=== PATIENT | female | born 2000 | race Caucasian/White ===

== ENCOUNTER → 2020-10-07 16:07 | Outpatient (CLI) | payer OTHER, SELFPAY ==
[2020-10-11 03:40] LABS: Chlamydia trachomatis NAA Negative (Negative); Neisseria gonorrhoeae NAA Negative (Negative)
== END ==
PROVIDERS: PCP Physician Assistant Medical; Visit Provider Physician Assistant
DX: R10.84 Generalized abdominal pain (principal); R11.0 Nausea; R82.90 Unspecified abnormal findings in urine
CPT/HCPCS: 87086; 87491; 87591

== ENCOUNTER → 2020-10-12 08:18 | Outpatient (CLI) | payer OTHER, SELFPAY ==
[2020-10-12 18:40] LABS: Add Manual Diff / Slide Review NO; Basophils Absolute Auto 0 /uL (0-100); Basophils Percent Auto 0.6 % (0-2); Eosinophils Absolute Auto 100 /uL (0-450); Eosinophils Percent Auto 0.9 % (2-4); Hematocrit 44.9 % (36-46); Hemoglobin 14.9 g/dL (12.0-16.0); Lymphocytes Absolute Auto 1900 /uL (1100-4500); Lymphocytes Percent Auto 27.2 % (25-40); Mean Corpuscular HGB Conc 33.2 % (30-36); Mean Corpuscular Hemoglobin 30.3 PG (26-34); Mean Corpuscular Volume 91.4 fL (80-100); Monocytes Absolute Auto 500 /uL (0-900); Monocytes Percent Auto 6.9 % (3-14); Neutrophils Absolute Auto 4400 /uL (1500-7000); Neutrophils Percent Auto 64.4 % (50-75); Platelet Count 282 X10^3/uL (150-400); Red Blood Cell Count 4.91 X10^6/uL (4.0-5.2); Red Cell Distribution Width 12.9 % (11.6-14.8); White Blood Cell Count 6.9 X10^3/uL (4.5-11.0)
[2020-10-12 19:14] LABS: Alanine Aminotransferase 12 IU/L (<35); Albumin 4.3 g/dL (3.5-5.0); Albumin Globulin Ratio 1.4 (1.0-2.8); Alkaline Phosphatase 75 U/L (38-126); Aspartate Aminotransferase 21 IU/L (14-36); BUN Creatinine Ratio 14.9 (6-22); Bilirubin Total 0.6 mg/dL (0.2-1.3); Blood Urea Nitrogen 11 mg/dL (7-17); Calcium 9.5 mg/dL (8.4-10.2); Carbon Dioxide 26 mmol/L (22-32); Chloride 105 mmol/L (98-107); Estimated Glomerular Filt Rate > 60.0 mL/min (>60); Globulin 3.1 g/dL (1.7-4.1); Glucose 94 mg/dL (70-100); HEMOLYSIS < 15 (0-50); Sodium 139 mmol/L (137-145); Total Protein 7.4 g/dL (6.3-8.2)
[2020-10-12 19:44] LABS: Thyroid Stimulating Hormone 1.01 uIU/mL (0.47-4.68)
== END ==
PROVIDERS: PCP Physician Assistant Medical; Visit Provider Physician Assistant
DX: R10.84 Generalized abdominal pain (principal); R11.0 Nausea; R19.5 Other fecal abnormalities
CPT/HCPCS: 80053; 84443; 85025

== ENCOUNTER 2020-10-13 13:33 | Emergency (ER) | payer OTHER, SELFPAY ==
[2020-10-13 14:08] VITALS: BP 117/73; PULSE 76; RESP 18; TEMP 36.8; O2SAT 99; BMI 29.5
[2020-10-13 14:37] LABS: Add Manual Diff / Slide Review NO; Basophils Absolute Auto 100 /uL (0-100); Basophils Percent Auto 0.7 % (0-2); Eosinophils Absolute Auto 100 /uL (0-450); Eosinophils Percent Auto 0.7 % (2-4); Hemoglobin 15.4 g/dL (12.0-16.0); Lymphocytes Absolute Auto 2300 /uL (1100-4500); Lymphocytes Percent Auto 22.7 % (25-40); Mean Corpuscular HGB Conc 34.3 % (30-36); Mean Corpuscular Hemoglobin 30.7 PG (26-34); Mean Corpuscular Volume 89.3 fL (80-100); Monocytes Absolute Auto 700 /uL (0-900); Monocytes Percent Auto 6.8 % (3-14); Neutrophils Absolute Auto 6900 /uL (1500-7000); Neutrophils Percent Auto 69.1 % (50-75); Platelet Count 310 X10^3/uL (150-400); Red Blood Cell Count 5.03 X10^6/uL (4.0-5.2); Red Cell Distribution Width 12.9 % (11.6-14.8)
[2020-10-13 14:44] LABS: INR 1.1 (0.9-1.3); Prothrombin Time 12.2 SECONDS (10.1-12.7)
[2020-10-13 14:46] LABS: PTT Partial Thromboplastin Tim 40 SECONDS (26.4-36.2)
[2020-10-13 14:49] LABS: Alanine Aminotransferase 13 IU/L (<35); Albumin 4.9 g/dL (3.5-5.0); Albumin Globulin Ratio 1.4 (1.0-2.8); Alkaline Phosphatase 69 U/L (38-126); Aspartate Aminotransferase 23 IU/L (14-36); BUN Creatinine Ratio 17.7 (6-22); Bilirubin Total 0.6 mg/dL (0.2-1.3); Blood Urea Nitrogen 14 mg/dL (7-17); Carbon Dioxide 27 mmol/L (22-32); Chloride 104 mmol/L (98-107); Estimated Glomerular Filt Rate > 60.0 mL/min (>60); Globulin 3.5 g/dL (1.7-4.1); Glucose 93 mg/dL (70-100); HEMOLYSIS < 15 (0-50); Lipase 53 U/L (23-300); Potassium 3.9 mmol/L (3.4-5.1); Sodium 140 mmol/L (137-145); Total Protein 8.4 g/dL (6.3-8.2)
[2020-10-13 16:05] VITALS: BP 112/59; BP 118/77; PULSE 72; PULSE 97
--- NOTE | 2020-10-13 16:20 | ED_ITS ---
HPI - General Adult General Chief complaint: Abdominal Pain Stated complaint: abdominal pain past month Time Seen by Provider: 10/13/20 16:03 Source: patient Mode of arrival: Ambulatory Limitations: no limitations History of Present Illness HPI narrative: Patient is a 20-year-old female who is here for evaluation of bilateral upper abdominal discomfort. She states it has been going on for the past month. He does seem to come and go. She has also had episodes of diarrhea. There is no blood in her stool. Does not think that the abdominal pain is associated with eating or with urinating or having a bowel movement. She has tried Imodium but this caused her to then become constipated for couple days. No fevers. No history of . No prior abdominal surgeries. Related Data Allergies Allergy/AdvReac Type Severity Reaction Status Date / Time No Known Drug Allergies Allergy Verified 10/13/20 14:08 Review of Systems Constitutional Constitutional: Denies fever(s) and Denies headache(s) ENT Ears, Nose, Mouth, and Throat: Denies headache(s) Cardiovascular Cardiovascular: Denies chest pain and Denies dyspnea Respiratory Respiratory: Denies dyspnea Gastrointestinal Gastrointestinal: Reports abdominal pain, Reports diarrhea, Denies nausea and Denies vomiting Genitourinary Genitourinary: Denies dysuria Genitourinary: Denies abnormal vaginal bleeding and Denies dysuria Musculoskeletal Musculoskeletal: Denies myalgias Integumentary/Breasts Skin/Breast: Denies rash Neurologic Neurologic: Denies behavioral changes and Denies headache(s) Psychiatric Psychiatric: Denies behavioral changes Hematologic/Lymphatic On Anticoagulants: No Allergic/Immunologic Allergic/Immunologic: Denies urticaria Patient History Medical History Foul smelling urine Loose stools Social History Smoking Status: Current every day smoker Smoking Status: Current every day smoker tobacco type: vaping alcohol intake frequency: a few times a month Substance Use Type: marijuana Exam Initial Vital Signs Initial Vital Signs: Vital Signs Temperature 98.3 F 10/13/20 14:08 Pulse Rate 76 10/13/20 14:08 Respiratory Rate 18 10/13/20 14:08 Blood Pressure 117/73 10/13/20 14:08 Pulse Oximetry 99 10/13/20 14:08 Const General: cooperative and comfortable Limitations: mental status not altered HENMT Head: normal to inspection and normocephalic Resp Effort & Inspection: normal respiratory effort Auscultation: clear to auscultation bilaterally Cardio Rate: regular rate Rhythm: regular rhythm GI Inspection: non-distended Palpation: soft, No firm and tender (Mild tenderness upper abdomen) Back/Spine/Pelvis Back: No CVA tenderness Skin Lesions: no lesions Rashes: no rashes Neuro General: patient alert, patient awake and patient oriented x3 Cognition: normal cognition Speech: speech normal Extrem General: normal to inspection Psych Appearance: grossly normal and well kempt Course Orders Ordered: ED Orders 10/13/20 14:28 Complete Blood Count AUTO DIFF Stat Comprehensive Metabolic Panel Stat Lipase Stat Partial Thromboplastin Time Stat Prothrombin Time INR Stat Vital Signs Vital signs: Vital Signs - 8 hr 10/13/20 14:08 10/13/20 16:05 10/13/20 16:32 Temperature 98.3 F Pulse Rate 76 62 Pulse Rate [Orthostatic Lying] 72 Pulse Rate [Orthostatic Standing] 97 H Respiratory Rate 18 Blood Pressure 117/73 106/60 Blood Pressure [Orthostatic Lying] 112/59 L Blood Pressure [Orthostatic Standing] 118/77 Pulse Oximetry 99 99 Medical Decision Making Lab Data Lab results reviewed: Yes I reviewed the patient's lab results. Result diagrams: 10/13/20 14:28 10/13/20 14:28 Labs: Lab Results 10/13/20 10/13/20 10/13/20 Range/Units 14:28 14:28 14:28 WBC 10.0 (4.5-11.0) X10^3/uL RBC 5.03 (4.0-5.2) X10^6/uL Hgb 15.4 (12.0-16.0) g/dL Hct 45.0 (36-46) % MCV 89.3 (80-100) fL MCH 30.7 (26-34) PG MCHC 34.3 (30-36) % RDW 12.9 (11.6-14.8) % Plt Count 310 (150-400) X10^3/uL Neut % (Auto) 69.1 (50-75) % Lymph % (Auto) 22.7 L (25-40) % [place] % (Auto) 6.8 (3-14) % Eos % (Auto) 0.7 L (2-4) % Baso % (Auto) 0.7 (0-2) % Neut # (Auto) 6900 (6690-3550) /uL Lymph # (Auto) 2300 (2688-9257) /uL [place] # (Auto) 700 (0-900) /uL Eos # (Auto) 100 (0-450) /uL Baso # (Auto) 100 (0-100) /uL PT 12.2 (10.1-12.7) SECONDS INR 1.1 (0.9-1.3) APTT 40 H (26.4-36.2) SECONDS Sodium 140 (137-145) mmol/L Potassium 3.9 (3.4-5.1) mmol/L Chloride 104 (98-107) mmol/L Carbon Dioxide 27 (22-32) mmol/L BUN 14 (7-17) mg/dL Creatinine 0.79 (0.52-1.04) mg/dL Estimated GFR > 60.0 (>60) mL/min BUN/Creatinine Ratio 17.7 (6-22) Glucose 93 (70-100) mg/dL Calcium 10.0 (8.4-10.2) mg/dL Total Bilirubin 0.6 (0.2-1.3) mg/dL AST 23 (14-36) IU/L ALT 13 (<35) IU/L Alkaline Phosphatase 69 (38-126) U/L Total Protein 8.4 H (6.3-8.2) g/dL Albumin 4.9 (3.5-5.0) g/dL Globulin 3.5 (1.7-4.1) g/dL Albumin/Globulin Ratio 1.4 (1.0-2.8) Lipase 53 (23-300) U/L [facility] Narrative Medical decision making narrative: Patient has unremarkable labs. Also has a very benign exam. She is afebrile. I have low suspicion for appendicitis and also other intra-abdominal surgical issues I feel that we should hold on any radiologic studies for now. Is also no indication for antibiotics. Low suspicion for gallbladder pathology. Low suspicion for pancreatitis. I did discuss all this with the patient. Plan is to start the patient on famotidine for the next several days/weeks to see if this does not improve her symptoms. She is going to contact her primary doctor to discuss potential referral to see Gastroenterology. She was given return precautions. She expressed understanding and agreement. Discharge Plan Departure Patient Disposition: Home Clinical Impression: Abdominal pain Instructions: DI for Abdominal Pain-Adult Activity Restrictions/Additional Instructions: Your labs and workup today is very reassuring. I recommend that you start on a medicine called famotidine/Pepcid. You can purchase this [id number]. Start taking it like we discussed. Also recommend you talk with your primary doctor about the indications for referral to see Gastroenterology. Return to the emergency department for any new or worsening symptoms. Referrals: Radha Kimble PA-C [Primary Care Provider] -
[2020-10-13 16:32] VITALS: BP 106/60; PULSE 62; O2SAT 99
== END 2020-10-13 16:33 | disposition home or self-care (01) ==
PROVIDERS: Emergency Medicine; Emergency Provider Emergency Medicine; PCP Physician Assistant Medical
DX: R10.9 Unspecified abdominal pain (principal); R19.7 Diarrhea, unspecified
CPT/HCPCS: 36415; 80053; 83690; 85025; 85610; 85730; 99283

== ENCOUNTER 2020-10-19 22:02 | Emergency (ER) | payer OTHER, SELFPAY ==
[2020-10-19 22:09] VITALS: BP 114/75; PULSE 81; RESP 18; TEMP 36.3; O2SAT 100
--- NOTE | 2020-10-19 22:36 | DI.CT.S_ITS ---
PROCEDURE: CT ABDOMEN PELVIS W CON INDICATIONS: generalized abdominal pain TECHNIQUE: After the administration of intravenous contrast, 5 mm thick sections acquired from the diaphragm to the symphysis. 5 mm coronal and sagittal reformats were acquired. For radiation dose reduction, the following was used: automated exposure control, adjustment of mA and/or kV according to patient size. COMPARISON: None. FINDINGS: Image quality: Excellent. ABDOMEN: Lung bases: Lung bases are clear. Heart size is normal. Solid organs: Liver is normal in size and enhancement. There is a small Phrygian cap versus focal adenomyomatosis at the gallbladder fundus. The gallbladder otherwise appears normal without stones or signs of acute cholecystitis. Biliary system is non dilated. Pancreas enhances normally. Spleen is normal in size and enhancement. No adrenal nodules. Kidneys demonstrate normal size and enhancement, without hydronephrosis. Peritoneum and bowel: A few scattered diverticula are seen in the colon without signs of acute diverticulitis. Mild bowel wall thickening versus underdistention is seen in portions of the descending and sigmoid colon. The appendix appears normal. No signs of bowel obstruction. No free fluid or air. Nodes and vessels: No retroperitoneal or mesenteric adenopathy by size criteria. Aorta and inferior vena cava are normal in size. Miscellaneous: No ventral hernias. PELVIS: Genitourinary: Bladder wall thickness is normal. The uterus is normal in size. No suspicious adnexal mass is seen. Miscellaneous: No inguinal hernias or adenopathy. Bones: No suspicious bony lesions. No vertebral body compression fractures. IMPRESSION: 1. Mild bowel wall thickening versus underdistention in the descending and sigmoid colon may indicate a possible mild colitis in the appropriate clinical setting. 2. Mild colonic diverticulosis without signs of acute diverticulitis. There is no significant discrepancy when compared to the overnight Teleradiology report. Dictated by: Teodoro Hyatt M.D. on 10/20/2020 at 9:01 Approved by: Teodoro Hyatt M.D. on 10/20/2020 at 9:10
--- NOTE | 2020-10-19 22:37 | ED.ABDPAIN ---
HPI - Abdominal Pain General Chief Complaint: Abdominal Pain Stated Complaint: abdominal pain Time Seen by Provider: 10/19/20 22:27 Source: patient and family Mode of arrival: Ambulatory History of Present Illness HPI narrative: Patient complains ongoing upper abdominal pain bilaterally for the past 1 month. Seen here 6 days ago for the same. No imaging but blood work done. Now localizing to the right upper quadrant. Has had nausea vomiting and watery diarrhea. Denies . No urinary complaints. No prior abdominal surgical history. MD complaint: abdominal pain Related Data Previous Rx's Medication Instructions Recorded dicyclomine 10 mg PO TID #20 cap 10/20/20 ondansetron 4 mg PO Q8H PRN #10 tab 10/20/20 pantoprazole [Protonix] 40 mg PO DAILY #14 tab 10/20/20 sucralfate 1 g PO BID #20 tab 10/20/20 Allergies Allergy/AdvReac Type Severity Reaction Status Date / Time No Known Drug Allergies Allergy Verified 10/13/20 14:08 Review of Systems Review of Systems Narrative: GENERAL: Denies chills, fatigue, malaise, fever, sweats. HEENT: Denies sinus pain, ear pain, sore throat RESPIRATORY: Denies dyspnea, cough CARDIOVASCULAR: Denies chest pain, palpitations GASTROINTESTINAL: Complains of diarrhea, nausea, vomiting, abdominal pain : Denies dysuria, frequency, hematuria MUSCULOSKELETAL: denies muscle or bony pain SKIN: Denies rash, skin lesions NEUROLOGIC: Denies weakness, numbness ROS Unobtainable: All systems reviewed & are unremarkable except as noted in HPI and below Patient History Medical History Foul smelling urine Loose stools Social History Smoking Status: Current every day smoker Smoking Status: Current every day smoker tobacco type: vaping alcohol intake frequency: a few times a month Substance Use Type: marijuana Exam Narrative Exam Narrative: GENERAL: in no distress, not toxic not dyspneic HEAD: Normocephalic. EYES: Pupils equal round No scleral icterus. No injection no discharge ENT: Mucous membranes moist. NECK: Trachea midline. CARDIOVASCULAR: Regular rate and rhythm without murmurs RESPIRATORY: Clear to auscultation. Breath sounds equal bilaterally. No wheezes, rales, or rhonchi. GASTROINTESTINAL: Abdomen soft, mild right upper quadrant tenderness. Pain with Terry sign. No McBurney point tenderness, bowel sounds present. No peritoneal signs EXTREMITIES: No gross deformities. BACK: No flank tenderness. NEURO: AOx4. SKIN: Warm and dry PSYCH: Not anxious, is cooperative Initial Vital Signs Initial Vital Signs: Vital Signs Temperature 97.4 F L 10/19/20 22:09 Pulse Rate 81 10/19/20 22:09 Respiratory Rate 18 10/19/20 22:09 Blood Pressure 114/75 10/19/20 22:09 Pulse Oximetry 100 10/19/20 22:09 Course Course Course Narrative: No new issues during course of stay Orders Ordered: ED Orders 10/19/20 22:30 Complete Blood Count AUTO DIFF Stat Comprehensive Metabolic Panel Stat Lipase Stat Partial Thromboplastin Time Stat Prothrombin Time INR Stat 10/19/20 22:36 CT abdomen pelvis w con Stat Discontinued Medications Sodium Chloride (Normal Saline 0.9%) 1,000 mls @ 1,000 mls/hr IV BOLUS ONE Stop: 10/19/20 23:34 Last Infusion: 10/20/20 00:33 Dose: 0 mls/hr Documented by: Admin: 10/19/20 22:55 Dose: 1,000 mls/hr Documented by: NEDA Ketorolac Tromethamine (Ketorolac 30 Mg/Ml Vial) 15 mg IV NOW ONE Stop: 10/19/20 22:36 Last Admin: 10/19/20 22:55 Dose: 15 mg Documented by: NEDA Ondansetron HCl (Ondansetron 4 Mg/2 Ml Inj) 4 mg IV NOW ONE Stop: 10/19/20 22:36 Last Admin: 10/19/20 22:55 Dose: 4 mg Documented by: NEDA Reevaluation(s) Reevaluation #1: Pain and nausea controlled while here. Reviewed results with patient and mother. Agree with treatment plan and follow-up with family doctor or general surgeon for HIDA scan/ultrasound of the gallbladder as well as endoscopy/colonoscopy No family history of IBD. Time: 00:17 Vital Signs Vital signs: Vital Signs - 8 hr 10/19/20 22:09 Temperature 97.4 F L Pulse Rate 81 Respiratory Rate 18 Blood Pressure 114/75 Pulse Oximetry 100 MDM - Abdominal Pain Differential Diagnosis Differential diagnosis: Likely abdominal pain, acute appendicitis, constipation, gastroenteritis, pancreatitis and other (Biliary colic/cholecystitis/gallstone) Medical Records Attestation: I reviewed the patient's medical records. Lab Data Attestation: I reviewed the patient's lab results. Result diagrams: 10/19/20 22:30 10/19/20 22:30 Labs: Lab Results 10/19/20 10/19/20 10/19/20 Range/Units 22:30 22:30 22:30 WBC 11.0 (4.5-11.0) X10^3/uL RBC 4.60 (4.0-5.2) X10^6/uL Hgb 14.0 (12.0-16.0) g/dL Hct 40.8 (36-46) % MCV 88.8 (80-100) fL MCH 30.5 (26-34) PG MCHC 34.4 (30-36) % RDW 12.5 (11.6-14.8) % Plt Count 265 (150-400) X10^3/uL Neut % (Auto) 66.7 (50-75) % Lymph % (Auto) 23.7 L (25-40) % [place] % (Auto) 9.0 (3-14) % Eos % (Auto) 0.2 L (2-4) % Baso % (Auto) 0.4 (0-2) % Neut # (Auto) 7400 H (9013-3179) /uL Lymph # (Auto) 2600 (6628-9721) /uL [place] # (Auto) 1000 H (0-900) /uL Eos # (Auto) 0 (0-450) /uL Baso # (Auto) 0 (0-100) /uL PT 13.3 H (10.1-12.7) SECONDS INR 1.2 (0.9-1.3) APTT 37 H (26.4-36.2) SECONDS Sodium 139 (137-145) mmol/L Potassium 3.8 (3.4-5.1) mmol/L Chloride 106 (98-107) mmol/L Carbon Dioxide 26 (22-32) mmol/L BUN 14 (7-17) mg/dL Creatinine 0.77 (0.52-1.04) mg/dL Estimated GFR > 60.0 (>60) mL/min BUN/Creatinine Ratio 18.2 (6-22) Glucose 99 (70-100) mg/dL Calcium 9.3 (8.4-10.2) mg/dL Total Bilirubin 0.6 (0.2-1.3) mg/dL AST 22 (14-36) IU/L ALT 11 (<35) IU/L Alkaline Phosphatase 64 (38-126) U/L Total Protein 7.3 (6.3-8.2) g/dL Albumin 4.3 (3.5-5.0) g/dL Globulin 3.0 (1.7-4.1) g/dL Albumin/Globulin Ratio 1.4 (1.0-2.8) Lipase 50 (23-300) U/L Imaging Data CT scan - abdomen/pelvis: Radiologist's Impression: CT scan abdomen pelvis read by overnight radiologist impression question mild proctitis/discontinue his colitis. MDM Narrative Medical decision making narrative: Appropriate for discharge home. Imaging laboratory studies and workup reassuring. Patient not toxic. Ongoing for 1 month. Laboratory studies and imaging and exam reassuring. Will need further outpatient management. Discharge Plan Departure Patient Disposition: Home Clinical Impression: Abdominal pain Qualifiers: Abdominal location: right upper quadrant Qualified Code(s): R10.11 - Right upper quadrant pain Instructions: DI for Abdominal Pain-Adult Activity Restrictions/Additional Instructions: Call provided general surgery office/provider tomorrow for office recheck as well as scheduling for possible endoscopy of the stomach and colonoscopy. Also for possible ultrasound the gallbladder and HIDA scan of the gallbladder. No fried fatty greasy foods or spicy foods. Return if worse if any questions or concerns Prescriptions: New dicyclomine 10 mg capsule 10 mg PO TID Qty: 20 RF: 0 sucralfate 1 gram tablet 1 g PO BID Qty: 20 RF: 0 ondansetron 4 mg tablet,disintegrating 4 mg PO Q8H PRN (Reason: nausea and vomiting) Qty: 10 RF: 0 pantoprazole [Protonix] 40 mg tablet,delayed release (DR/EC) 40 mg PO DAILY Qty: 14 RF: 0 Referrals: Radha Kimble PA-C [Primary Care Provider] - Lyric Mtz MD [Physician] -
[2020-10-19] MEDS: ONDANSETRON 4 MG/2 ML INJ IV (22:55)
[2020-10-19] MEDS: KETOROLAC 30 MG/ML VIAL 15 MG IV (22:55)
[2020-10-19] MEDS: SODIUM CHLORIDE 0.9% 1,000 ML 1000 ML IV (22:55)
[2020-10-19 22:58] LABS: Add Manual Diff / Slide Review NO; Basophils Absolute Auto 0 /uL (0-100); Basophils Percent Auto 0.4 % (0-2); Eosinophils Absolute Auto 0 /uL (0-450); Eosinophils Percent Auto 0.2 % (2-4); Hematocrit 40.8 % (36-46); Lymphocytes Absolute Auto 2600 /uL (1100-4500); Lymphocytes Percent Auto 23.7 % (25-40); Mean Corpuscular HGB Conc 34.4 % (30-36); Mean Corpuscular Hemoglobin 30.5 PG (26-34); Mean Corpuscular Volume 88.8 fL (80-100); Monocytes Absolute Auto 1000 /uL (0-900); Neutrophils Absolute Auto 7400 /uL (1500-7000); Neutrophils Percent Auto 66.7 % (50-75); Platelet Count 265 X10^3/uL (150-400); Red Cell Distribution Width 12.5 % (11.6-14.8)
[2020-10-19 23:03] LABS: Alanine Aminotransferase 11 IU/L (<35); Albumin 4.3 g/dL (3.5-5.0); Albumin Globulin Ratio 1.4 (1.0-2.8); Alkaline Phosphatase 64 U/L (38-126); Aspartate Aminotransferase 22 IU/L (14-36); BUN Creatinine Ratio 18.2 (6-22); Bilirubin Total 0.6 mg/dL (0.2-1.3); Blood Urea Nitrogen 14 mg/dL (7-17); Calcium 9.3 mg/dL (8.4-10.2); Carbon Dioxide 26 mmol/L (22-32); Chloride 106 mmol/L (98-107); Estimated Glomerular Filt Rate > 60.0 mL/min (>60); Glucose 99 mg/dL (70-100); HEMOLYSIS < 15 (0-50); Lipase 50 U/L (23-300); Potassium 3.8 mmol/L (3.4-5.1); Sodium 139 mmol/L (137-145); Total Protein 7.3 g/dL (6.3-8.2)
[2020-10-19 23:56] LABS: INR 1.2 (0.9-1.3); Prothrombin Time 13.3 SECONDS (10.1-12.7)
[2020-10-19 23:59] LABS: PTT Partial Thromboplastin Tim 37 SECONDS (26.4-36.2)
== END 2020-10-20 00:34 | disposition home or self-care (01) ==
PROVIDERS: Emergency Provider Emergency Medicine; PCP Physician Assistant Medical
DX: R10.11 Right upper quadrant pain (principal); R11.2 Nausea with vomiting, unspecified
CPT/HCPCS: 74177; 80053; 83690; 85025; 85610; 85730; 96361; 96374; 96375; 99284; J1885; J2405; Q9967

== ENCOUNTER → 2020-11-12 12:21 | Outpatient (CLI) | payer OTHER, SELFPAY ==
--- NOTE | 2020-11-12 12:22 | DI.US.S_ITS ---
PROCEDURE: US ABDOMEN LIMITED INDICATIONS: RIGHT UPPER QUADRANT PAIN TECHNIQUE: Real-time focused scanning was performed of the abdomen, with image documentation. COMPARISON: [facility], CT, CT ABDOMEN PELVIS W CON, 10/19/2020, 22:53. FINDINGS: The liver demonstrates normal size. The liver demonstrates generalized mildly increased echogenicity. This decreases ultrasound sensitivity for detection of hepatic masses. The main portal vein demonstrates normal size and demonstrates normal appearing, hepatopetal flow. No findings of gallstones or sludge are seen. The gallbladder wall is not thickened, measuring 3 mm or less. No specific pericholecystic fluid is seen. The sonographic Terry sign is negative. There is no biliary dilatation, the common bile duct measures 2 mm. No significant pancreatic abnormality is seen on these images. IMPRESSION: The gallbladder demonstrates a normal sonographic appearance. No biliary dilatation is seen. The liver demonstrates mildly increased echogenicity. This finding is nonspecific, yet it is most commonly attributed to fatty infiltration. Dictated by: Hossein Tellez M.D. on 11/12/2020 at 11:58 Approved by: Hossein Tellez M.D. on 11/12/2020 at 11:58
== END ==
PROVIDERS: PCP Physician Assistant Medical; Referring Provider Physician Assistant; Visit Provider Physician Assistant
DX: R10.11 Right upper quadrant pain (principal)
CPT/HCPCS: 76705

== ENCOUNTER → 2021-01-26 10:24 | Outpatient (CLI) | payer OTHER, SELFPAY ==
[2021-01-26 21:22] LABS: COVID19 - ORCAS (NP or Nasal) Negative (Negative)
== END ==
PROVIDERS: PCP Physician Assistant; Visit Provider Physician Assistant Medical
DX: Z20.822 Contact with and (suspected) exposure to COVID-19 (principal)
CPT/HCPCS: U0003

== ENCOUNTER 2021-01-27 13:17 | Day surgery (SDC) | payer OTHER, SELFPAY ==
[2021-01-27 13:30] VITALS: BP 109/70; PULSE 82; RESP 16; TEMP 36.5; O2SAT 99; BMI 27.9
[2021-01-27] MEDS: LACTATED RINGERS 1,000 ML 200 ML IV (14:12)
--- NOTE | 2021-01-27 14:22 | PM.PREOP ---
Pre-operative Note Interval Note History & Physical reviewed/Exam performed by Physician: Yes Changes to H&P: No
[2021-01-27] MEDS: LIDOCAINE 4% SOLN 50 ML 20 ML TOP (14:27)
[2021-01-27] MEDS: fentaNYL 250 MCG/5 ML INJ IV (14:28)
[2021-01-27] MEDS: MIDAZOLAM 5 MG/5 ML VIAL IV (14:28)
--- NOTE | 2021-01-27 14:41 | P.OP.ENDO_ITS ---
Operative Date/Time/Diagnoses Date of procedure: 01/27/21 Time of procedure: 14:41 Pre-op diagnosis: abdominal pain Post-op diagnosis: same Procedure & Clinicians Study performed: esophagoduodenoscopy Same procedure as scheduled: Yes Indications: abdominal pain Surgeon: Max Pineda Procedure Notes Procedure in detail: Patient placed in left lateral decubitus position. Time out was performed. Procedural sedation was administered with Versed and Fentanyl. A bite block was placed. the scope was inserted into the mouth and advanced through the esophagus and into the stomach. The pylorus was intubated and the duodenum was normal to the 2nd portion. The scope was retroflexed within the stomach and there was a small hiatal hernia. No ulcers, or gastritis. The scope was withdrawn into the esophagus the Z line was seen at 40 cm from the in cisions. There was no Avina's esophagitis or masses or strictures. Stomach was desufflated and scope removed. Patient tolerated procedure well. Specimen(s): none sent Complications: none Impression: Normal esophagoduodenoscopy small hiatal Post-procedure Recommendations: Other recommendation (Follow-up with HIDA scan) Disposition: same day surgery
[2021-01-27 14:42] VITALS: BP 117/53; PULSE 80; RESP 12; TEMP 36.3; O2SAT 95
[2021-01-27 14:48] VITALS: BP 109/61; PULSE 70; RESP 14; O2SAT 96
[2021-01-27 14:53] VITALS: BP 105/68; PULSE 75; RESP 0; O2SAT 97
[2021-01-27 14:58] VITALS: BP 110/42; PULSE 72; RESP 10; O2SAT 97
[2021-01-27 15:03] VITALS: BP 98/60; PULSE 73; RESP 12; TEMP 36.8; O2SAT 99
== END 2021-01-27 14:13 | disposition home or self-care (01) ==
PROVIDERS: PCP Physician Assistant; Referring Provider Surgery; Visit Provider Surgery
PROC: 0DJ08ZZ Inspection of Upper Intestinal Tract, Via Natural or Artificial Opening Endoscopic (ICD-10-PCS; CPT 43235; principal; 2021-01-27 14:30)
DX: R10.9 Unspecified abdominal pain (principal); K44.9 Diaphragmatic hernia without obstruction or gangrene; F17.210 Nicotine dependence, cigarettes, uncomplicated; K21.9 Gastro-esophageal reflux disease without esophagitis
CPT/HCPCS: 43235; J2250; J3010

== ENCOUNTER → 2021-02-11 09:23 | Outpatient (CLI) | payer OTHER, SELFPAY ==
--- NOTE | 2021-02-11 09:25 | DI.NM.S_ITS ---
PROCEDURE: NM HIDA WITH CCK PHARMACEUTICAL: 5.3 mCi Tc-99m mebrofenin IV; 8 oz Ensure Plus by mouth. INDICATIONS: Abdominal pain negative US and CT TECHNIQUE: Following intravenous administration of Tc-99m mebrofenin, sequential anterior abdominal images were obtained. To evaluate the contractile response of the gallbladder in response to fatty meal, 8 0z Ensure Plus was given by mouth (as substitute for CCK) approximately 60 minutes after the administration of the radiopharmaceutical. Sequential imaging was continued for additional 30-60 minutes. Gallbladder ejection fraction was calculated. COMPARISON: None. FINDINGS: Biliary scan: There is normal tracer uptake and excretion by the liver. There is normal visualization of the intrahepatic ducts, common bile duct, and gallbladder. There is normal tracer transit into the duodenum. CCK stimulation: There is normal contractile response of the gallbladder to fatty meal. The calculated gallbladder ejection fraction is 81%; normal values are above 33%. IMPRESSION: 1. Normal filling of gallbladder. No evidence for acute cholecystitis. 2. Normal contractile response of gallbladder to fatty meal stimulation. Dictated by: Vivi Benítez M.D. on 02/11/2021 at 13:47 Approved by: Vivi Benítez M.D. on 02/11/2021 at 13:50
== END ==
PROVIDERS: PCP Physician Assistant; Referring Provider Surgery; Visit Provider Surgery
DX: R10.11 Right upper quadrant pain (principal)
CPT/HCPCS: 78226; A9537

== ENCOUNTER → 2021-05-06 08:57 | Outpatient (CLI) | payer OTHER, SELFPAY ==
[2021-05-06 21:29] LABS: COVID19 - ORCAS (NP or Nasal) Negative (Negative)
== END ==
PROVIDERS: PCP Physician Assistant; Visit Provider Physician Assistant
DX: Z20.822 Contact with and (suspected) exposure to COVID-19 (principal)
CPT/HCPCS: U0003

== ENCOUNTER → 2022-03-23 08:46 | Outpatient (CLI) | payer OTHER, SELFPAY ==
[2022-03-23 20:27] LABS: COVID-19 CEPHEID 4-PLEX PCR Negative (Negative); Influenza A - CEPHEID Flu A NEGATIVE (NEGATIVE); Influenza B - CEPHEID Flu B NEGATIVE (NEGATIVE); Respiratory Syncytial Virus Negative (Negative)
== END ==
PROVIDERS: PCP Physician Assistant; Visit Provider Physician Assistant Medical
DX: J02.9 Acute pharyngitis, unspecified (principal)
CPT/HCPCS: 0241U

== ENCOUNTER → 2022-08-16 11:04 | Outpatient (CLI) | payer OTHER, SELFPAY | PROVIDERS: PCP Physician Assistant; Visit Provider Physician Assistant | DX: J02.9 Acute pharyngitis, unspecified (principal) | CPT/HCPCS: 87070 ==